=== PATIENT | male | born 1980 | race Caucasian/White ===

== ENCOUNTER 2023-06-04 13:51 | Emergency (ER) | payer OTHER, SELFPAY ==
[2023-06-04 13:53] VITALS: BP 132/68; PULSE 71; TEMP 36.5; O2SAT 98; BMI 34.7
--- NOTE | 2023-06-04 13:59 | XR_ITS ---
WS: [id number] Exam: XR knee RT 3V* [id number] Date/Time of Exam: 06/04/2023 2:26 PM Reason For Exam: injury No fracture or dislocation. The joint compartments are preserved. There may be effusion in the suprap atellar bursa. IMPRESSION1. No fracture identified. 2. Questionable joint effusion.
--- NOTE | 2023-06-04 14:00 | ED_ITS ---
HPI - Fall General: Chief Complaint: Fall Stated Complaint: Fall/leg pain Time Seen by Provider: 06/04/23 13:51 Source: patient Mode of arrival: ambulatory Limitations: no limitations History of Present Illness: 43-year-old male who states that he trip ped and fell on the ice just prior to arrival. He states he twisted his right knee and felt a pop in that right knee having pain over the lateral and anterior portion of the knee he rates his pain a 2 out of 10 currently states he has not been able to bear weight. Course Vital Signs: Vital signs: Vital Signs Temperature 97.7 F 06/04/23 13:53 Pulse Rate 71 06/04/23 13:53 Blood Pressure 132/68 06/04/23 13:53 Pulse Oximetry 98 06/04/23 13:53 Oxygen Delivery Me thod Room Air 06/04/23 13:53 MDM - Fall Medical Decision Making Patient presents with a right knee sprain he is to weight-bear as tolerated he has crutches at home we will place in a knee immobilizer he is to follow-up with orthopedics return if worsening he understands agrees to plan. Medical Records I reviewed the patient's medical records. XR interpretation done by ED provider, pending radiology final review ED provider radiology interpretation(s): X-ray right knee no fracture noted Discharge Plan Discharge Patient Disposition: Home Clinical Impression: Right knee sprain Qualifiers: Encounter type: initial encounter Condition: Stable Prescriptions: New hydrocodone-acetaminophen 5-325 mg tablet 1 tab PO Q6H PRN (Reason: pain) Qty: 14 0RF Naprosyn 500 mg tablet 500 mg PO BID PRN (Reason: pain) Qty: 20 0RF No Action ibuprofen 200 mg Tablet 200 - 800 mg PO Q6H PRN (Reason: Pain) Abdiel's wort 300 mg Capsule 300 mg PO DAILY PRN (Reason: mood) Discharge Orders: Discharge ED (Routine); Ordered 06/04/23 Ordered By: Avi Asher Referrals: Taurus Pearson DO [Physician] - 1-3 days Discharge Diet: Advance as tolerated Discharge Activity: Resume usual activity Patient Instructions: Knee Sprain (ED), Knee Immobilizer (ED) Coding Level of Care Code ED [employer] for Pricilla Trinh
--- NOTE | 2023-06-04 15:19 | DCPLANNER ---
Message sent to Ortho for follow -up RT knee Sprain/E[place]ott
== END 2023-06-04 15:25 | disposition home or self-care (01) ==
PROVIDERS: Emergency Provider Emergency Medicine
DX: S83.91XA Sprain of unspecified site of right knee, initial encounter (principal); W00.0XXA Fall on same level due to ice and snow, initial encounter
CPT/HCPCS: 73562; 99283

== ENCOUNTER 2023-06-06 06:00 | Outpatient (CLI) | payer OTHER, SELFPAY | END 2023-06-06 23:59 | disposition home or self-care (01) | LOC: SPT 06-10 08:44 | PROVIDERS: Visit Provider Nurse Practitioner | DX: Z46.89 Encounter for fitting and adjustment of other specified devices (principal); M25.561 Pain in right knee | CPT/HCPCS: 97760; L1812 ==

== ENCOUNTER → 2023-06-06 08:56 | Outpatient (BNVA) | payer OTHER, SELFPAY | PROVIDERS: Visit Provider Nurse Practitioner | DX: S89.91XA Unspecified injury of right lower leg, initial encounter; W00.9XXA Unspecified fall due to ice and snow, initial encounter; M25.461 Effusion, right knee | CPT/HCPCS: 73560; 73565 ==